=== PATIENT | male | born 1970 | race Caucasian/White ===

== ENCOUNTER → 2019-04-17 17:30 | Outpatient (CLI) | payer OTHER, SELFPAY ==
--- NOTE | 2019-04-17 | DI.MRI.S_ITS ---
PROCEDURE: MR HIP RT WO CON INDICATIONS: Right hip pain TECHNIQUE: Noncontrast coronal T1 spin echo and STIR through the bony pelvis. Coronal and axial T2 fast spin echo with fat saturation, sagittal T1 spin echo, and oblique axial T2 fast spin echo with fat saturation through the hip. COMPARISON: None. FINDINGS: Image quality: Excellent. Bones and joints: No intraosseous lesions or fractures. No avascular necrosis of the femoral heads. Lower lumbar spondylitic changes. Trace right hip joint effusion. Tendons and ligaments: The gluteus medius and minimus tendons appear intact, without associated muscle atrophy. The nearby proximal iliotibial band also appears intact. The iliopsoas tendon appears intact, without adjacent bursal fluid collections or evidence for impingement syndrome. The origin of the hamstring tendon is intact at the ischial tuberosity, as well as the associated sacrotuberous ligament. The straight and reflected heads of the rectus femoris muscle origin appear intact, as well as the conjoint tendon. The ligamentum teres appears intact where visualized. Labrum and cartilage: Anterosuperior labral tear is seen. There is ill-defined multiloculated associated para labral cyst formation, for example image 4-7, with mild circumferential appearance. This measures 6 x 17 mm on oblique axial image 7 series 8 There is adjacent chondral loss, and subchondral sclerosis/spurring. The alpha angle of the femur is within normal limits at less than 55 degrees. Soft tissues: Visualized muscles demonstrate normal bulk and internal signal. Quadratus femoris muscle demonstrates no internal edema to suggest ischiofemoral impingement. The proximal sciatic neurovascular bundle appears normal adjacent to the hamstring tendons. No free pelvic fluid. Bladder wall thickness is normal. Subcentimeter fat signal appearance involving the bladder wall, image 22 series 2, image 22 series 3 of unknown clinical significance or etiology. IMPRESSION: Anterosuperior labral tear, with large circumferential para- labral cyst, and adjacent acetabular degenerative changes/chondral loss. Dictated by: Bruno Frazier M.D. on 04/18/2019 at 9:38 Approved by: Bruno Frazier M.D. on 04/18/2019 at 10:17
== END ==
PROVIDERS: PCP Family Medicine; Visit Provider Orthopaedic Surgery
DX: M25.551 Pain in right hip (principal); S73.191A Other sprain of right hip, initial encounter; M24.851 Other specific joint derangements of right hip, not elsewhere classified
CPT/HCPCS: 73721

== ENCOUNTER → 2022-12-03 16:38 | Outpatient (CLI) | payer OTHER, SELFPAY ==
--- NOTE | 2022-12-03 | DI.MRI.S_ITS ---
PROCEDURE: MR LUMBAR SPINE WO CON INDICATIONS: spondylosis w/o myelopathy or radiculopathy TECHNIQUE: Noncontrast sagittal T1 spin echo and T2 fast echo, sagittal STIR, and T2 fast spin echo through the lumbar spine. In cases with scoliosis, additional coronal T2 fast spin echo may be performed. COMPARISON: [facility] [place], CR, XR LUMBAR SPINE 2 OR 3 VIEWS, 11/25/2022, 13:39. FINDINGS: Image quality: Excellent. Alignment and Curvature: Mild levo curvature, centered L2. Bone Marrow: Marrow is of normal overall signal. No acute vertebral body compression fractures. Spinal Cord: Conus medullaris terminates at the T12/L1 level. Visualized cord demonstrates normal signal and size. Paraspinous Soft Tissues: No paravertebral masses. 8.6 cm inferior right renal cyst. T12-L1: Normal appearance. L1-L2: Normal appearance. L2-L3: Normal appearance. L3-L4: Minimal disc bulge. Mild facet hypertrophy. No canal stenosis or foraminal stenosis. L4-L5: Minimal disc bulge. Facet hypertrophy. No canal stenosis or foraminal stenosis. L5-S1: Facet hypertrophy. No canal stenosis or foraminal stenosis. IMPRESSION: 1. Multilevel lower lumbar facet hypertrophy. 2. No canal stenosis or foraminal stenosis. 3. Incidental note made of 8.6 cm exophytic right renal cyst. Dictated by: Rohit Huerta M.D. on 12/04/2022 at 8:49 Approved by: Rohit Huerta M.D. on 12/04/2022 at 8:52
--- NOTE | 2022-12-03 | DI.MRI.S_ITS ---
PROCEDURE: MR CERVICAL SPINE WO CON INDICATIONS: Spondylosis w/o myelopathy or radiculopathy TECHNIQUE: Noncontrast sagittal T1 spin echo and T2 fast spin echo, sagittal STIR, foraminal oblique sagittal T2 fast spin echo, and axial gradient echo or T2 fast spin echo through the cervical spine. COMPARISON: [facility] [place], CR, XR CERVICAL SPINE 2 OR 3 VIEWS, 11/25/2022, 13:41. FINDINGS: Image quality: Excellent. Alignment and Curvature: There is normal bony alignment. Bone Marrow: Marrow demons chronic anterior vertebral body height loss of C6 vertebral body. rates normal overall signal. Spinal Cord: Visualized spinal cord has normal size and signal. No cerebellar tonsillar herniation. Paraspinous Soft Tissues: No paravertebral masses. Prevertebral soft tissues are normal in thickness. C2-C3: Bilateral facet hypertrophy. No canal stenosis or foraminal stenosis. C3-C4: Diffuse posterior disc post osteophyte. AP diameter of the central canal is 11.3 mm. There are large bilateral uncovertebral joint osteophytes. There is mild bilateral facet hypertrophy. There is right lateral recess stenosis and severe right foraminal narrowing. There is right foraminal L4 nerve root impingement. There is moderate left foraminal narrowing. C4-C5: Disc bulge. AP diameter of the canal is 12 mm. Right uncovertebral joint hypertrophy. Mild bilateral facet hypertrophy. Moderate to severe right foraminal narrowing with a degree of right foraminal C5 nerve root impingement. Mild to moderate left foraminal narrowing. C5-C6: Disc bulge with minimal central posterior disc protrusion. AP diameter of the canal is 12.7 mm. Mild bilateral uncovertebral joint hypertrophy. Mild left foraminal narrowing. C6-C7: Posterior disc bulge. AP diameter of the canal is 12.7 mm. Bilateral uncovertebral joint hypertrophy. Mild bilateral foraminal narrowing. C7-T1: No canal stenosis. Mild bilateral foraminal narrowing. IMPRESSION: 1. Spondylitic change with facet arthropathy and uncovertebral joint hypertrophy. 2. No canal stenosis. 3. Multilevel foraminal narrowing as described above. Findings include severe right foraminal narrowing at C3-C4 and moderate to severe right foraminal narrowing at C4-C5. Dictated by: Rohit Huerta M.D. on 12/04/2022 at 8:52 Approved by: Rohit Huerta M.D. on 12/04/2022 at 8:59
== END ==
PROVIDERS: PCP Family Medicine; Referring Provider Physical Medicine & Rehabilitation; Visit Provider Physical Medicine & Rehabilitation
DX: M47.812 Spondylosis without myelopathy or radiculopathy, cervical region (principal); M48.02 Spinal stenosis, cervical region; M47.816 Spondylosis without myelopathy or radiculopathy, lumbar region; N28.1 Cyst of kidney, acquired
CPT/HCPCS: 72141; 72148

== ENCOUNTER 2025-01-13 17:58 | Emergency (ER) | payer OTHER, SELFPAY ==
[2025-01-13 18:02] VITALS: BP 163/103; PULSE 94; RESP 14; TEMP 36.7; O2SAT 98; BMI 37.5
--- NOTE | 2025-01-13 18:04 | ED_ITS ---
HPI - General Adult General Chief complaint: Extremity Injury, Lower Stated complaint: LEFT KNEE IN PAIN Time Seen by Provider: 01/13/25 18:03 History of Present Illness HPI narrative: 54-year-old male was playing soccer, dropped down to his left knee in order to make a low soccer ball strike with his right leg, felt pain at left knee, some swelling. Does not recall any twisting motion but he was trying to kick the ball with the other leg. No direct kick from another player. No laceration or abrasion to the skin. No pain to left mid upper thigh or hip, nor distal foreleg ankle or foot. Related Data Allergies Allergy/AdvReac Type Severity Reaction Status Date / Time No Known Drug Allergies Allergy Verified 01/13/25 18:06 Patient History Social History Smoking Status: Unknown if ever smoked Exam Narrative Exam Narrative: GENERAL: Well-developed patient, in mild distress. HEAD: Atraumatic. Normocephalic. EYES: Pupils equal round and reactive. Extraocular motions intact. No scleral icterus. No injection or drainage. ENT: Nose without bleeding, purulent drainage. Throat without erythema, tonsillar hypertrophy or exudate. Airway patent. NECK: Trachea midline. Non tender CARDIOVASCULAR: Regular rate and rhythm without murmurs, gallops, or rubs. RESPIRATORY: Clear to auscultation. Breath sounds equal bilaterally. No wheezes, rales, or rhonchi. GASTROINTESTINAL: Abdomen soft, non-tender, nondistended. EXTREMITIES: Tenderness medial and lateral joint line right knee, possible small effusion but not tense, no skin abrasion or wounds obvious, no crepitance over patella, no tenderness along the patellar tendon. No gross medial laxity or lateral laxity on stress testing. Connie's and anterior cruciate pull with good end point, no obvious laxity. Distal lower extremity without obvious trauma or injury or tenderness. No tenderness proximal thigh hip area BACK: Nontender without deformity or crepitance. No flank tenderness. NEURO: AOx3. Motor functions grossly nonfocal SKIN: No rash or erythema of visible areas Initial Vital Signs Initial Vital Signs: Vital Signs Temperature 98.0 F 01/13/25 18:02 Pulse Rate 94 H 01/13/25 18:02 Respiratory Rate 14 01/13/25 18:02 Blood Pressure 163/103 H 01/13/25 18:02 Pulse Oximetry 98 01/13/25 18:02 Oxygen Delivery Method Room Air 01/13/25 18:02 Course Orders Ordered: ED Orders 01/13/25 18:04 XR knee LT 3V Stat Vital Signs Vital signs: Vital Signs - 8 hr 01/13/25 18:02 Temperature 98.0 F Pulse Rate 94 H Respiratory Rate 14 Blood Pressure 163/103 H Pulse Oximetry 98 Oxygen Delivery Method Room Air Medical Decision Making Imaging Data Extremity x-ray #1: Radiologist's Impression: [address] [address] XRay Report Signed Patient: Temo Crawley MR#: [id number] : 1970 Acct:[id number] Age/Sex: 54 / M Date of Service: 01/13/25 Loc: ED Accession Number: [id number] Procedure: XR knee LT 3V Ordering Provider: Rob Aguayo MD PROCEDURE: XR KNEE LT 3V INDICATIONS: struck knee on ground playing soccer TECHNIQUE: 3 views of the knee were acquired. COMPARISON: None. FINDINGS: Bones: No fractures or dislocations. No suspicious bony lesions. Soft tissues: Soft tissue swelling can be seen anterior to the patella There is a small left knee joint effusion. No suspicious soft tissue calcifications. IMPRESSION: There is soft tissue swelling seen anterior to the patella. Small knee joint effusion. No fractures can be seen on this plain film study. If it would be helpful for clinical management decision making, please consider a dedicated, scheduled knee MRI for further evaluation (assuming that there is no contraindication). Dictated by: Pasquale Latif M.D. on 01/13/2025 at 17:51 Approved by: Pasquale Latif M.D. on 01/13/2025 at 17:52 [facility] Narrative Medical decision making narrative: Fall with left knee pain and some effusion on exam, no obvious laxity on varus or valgus stress, good endpoint on Connie's and anterior drawer testing. X-ray without obvious fracture. Consider advanced imaging. No MRI available at this hour and probably not indicated today. CT offered of the knee, declined. Attempted placement of knee immobilizer but he was too large. Tariq wrap applied. Crutches and nonweightbearing, crutches dispensed and fitted for a size with teaching. Advised nonweightbearing until close follow up with his orthopedic surgeon Dr. Morrow who happened also be on-call, can call her office on Wednesday for reassessment once knee effusion hopefully might go down a little bit to see if there is any ligamentous concerns, and need for advanced imaging in follow up. Take [id number] medications as needed for pain control. Discharged home with family. Return precautions discussed. Discharge Plan Departure Patient Disposition: Home Clinical Impression: Strain of left knee Activity Restrictions/Additional Instructions: Knee planting and possible twisting, with left knee pain and some swelling on examination. There some tenderness of the medial joint line and also on the lateral joint line, although there is no gross laxity on stress testing medial or lateral stress testing. Also your Connie's testing and anterior drawer testing seemed really quite good, very solid end point, hopefully there is no significant anterior cruciate ligament injury. X-rays without obvious bony injuries. However this is not show your soft tissue structures, including ligaments, which can be strained or even torn. Possible ligamentous injury. We attempted to place a knee immobilizer but it did not fit, you were 2 large, Tariq wrap applied. Advised use of crutches and nonweightbearing for now, dispensed and fitted in ED. Recheck with Orthopedic surgery Dr. Morrow on Wednesday for re- examination. Take [id number] ibuprofen as needed. Ice and elevation as much as you can tolerate. Return to this/nearest emergency department for any change worsening symptoms or any concerns prior. No obvious fracture on radiology reading of your knee, some small effusion was noted, as was clinically suspected. Also there is a small amount of edema before the kneecap, sometimes that bursa can also be traumatically irritated in cause traumatic bursitis of the patellar bursa. If your symptoms persist you could consider advanced imaging MRI, to look for ligamentous structures, and also it can look for bony injuries not found on plain films. Referrals: Adonay Villanueva MD [Primary Care Provider] - Jacqueline Morrow MD [Physician] - Stand Alone Forms: Patient Portal/API/Survey
== END 2025-01-13 19:05 | disposition home or self-care (01) ==
PROVIDERS: Emergency Provider Emergency Medicine; PCP Family Medicine; Referring Provider Emergency Medicine
DX: S86.912A Strain of unspecified muscle(s) and tendon(s) at lower leg level, left leg, initial encounter (principal); X58.XXXA Exposure to other specified factors, initial encounter; Y93.66 Activity, soccer
CPT/HCPCS: 73562; 99282; 99283

== ENCOUNTER → 2025-01-24 19:04 | Outpatient (CLI) | payer OTHER, SELFPAY ==
--- NOTE | 2025-01-24 | DI.MRI.S_ITS ---
PROCEDURE: MR KNEE LT WO CON INDICATIONS: rupture - left TECHNIQUE: Noncontrast sagittal PD fast spin echo and T2 fast spin echo with fat saturation, sagittal 3-D FLASH with fat saturation; coronal T1 spin echo and PD fast spin echo with fat saturation, and axial PD fast spin echo with fat saturation through the knee. COMPARISON: None. FINDINGS: Image quality: Excellent. Menisci: Signal abnormality involving posterior horn of medial meniscus extending to inferior articulating surface is seen suggestive of an oblique tear in this area. Subtle signal abnormality involving anterior horn of lateral meniscus is also seen extending to inferior articulating surface. Cruciate ligaments: Moderate grade intrasubstance partial-thickness tear involving ACL near its mid to distal portion. No definite full-thickness ACL rupture. The PCL is intact. Medial structures: The medial collateral ligament appears thickened with intrasubstance T2 hyperintense signal and surrounding edema particularly near its femoral insertion. Visualized portions of the pes anserinus tendons appear normal. No abnormal bursal fluid. Lateral structures: The lateral collateral ligament, long and short heads of the biceps femoris tendon appear thickened. The popliteus tendon appears thickened with intrasubstance T2 hyperintense signal extending to musculotendinous junction. Iliotibial band appears normal. Anterior structures: There is small lobulated fluid collection along anterior aspect of patella and proximal patellar tendon concerning for fluid within prepatellar bursa. Diffuse subcutaneous soft tissue edema and swelling around left knee is seen particularly over anterior aspect of left knee. Distal quadriceps tendon and patellar tendon are intact. Patellar alignment is normal. Bones and cartilage: No bone marrow contusions or fractures. Mild tricompartmental osteoarthritis and low-grade chondromalacia is seen. Joint space: There is small knee joint fluid. No Roger's cyst. Normal appearing synovial plicae are incidentally noted. IMPRESSION: 1. Moderate grade partial-thickness tear involving mid to distal portion of ACL. No full-thickness ACL rupture. No abnormal anterior tibial translation. The PCL is intact. 2. Suggestion of subtle oblique tear involving posterior horn of medial meniscus extending to inferior articulating surface. There is also likely subtle oblique tear involving anterior horn of lateral meniscus extending to inferior articulating surface. 3. Moderate to high-grade partial-thickness tear involving medial collateral ligament near its femoral insertion. Low-grade lateral collateral ligament sprain. Distal biceps femorals tendinosis. Low-grade intrasubstance partial-thickness tear involving popliteus tendon extending to musculotendinous junction. 4. Small amount of fluid along anterior aspect of patella and proximal patellar tendon which may indicate prepatellar bursal fluid and bursitis. Soft tissue swelling and edema along anterior, medial and lateral aspect of left knee. 5. Mild tricompartmental osteoarthritis and low-grade chondromalacia. No fracture or dislocation. Small joint effusion, no loose bodies. Dictated by: Minh Murphy M.D. on 01/26/2025 at 9:03 Approved by: Minh Murphy M.D. on 01/26/2025 at 9:24
== END ==
PROVIDERS: PCP Family Medicine; Referring Provider Internal Medicine; Visit Provider Physician Assistant
DX: M25.562 Pain in left knee (principal); S83.512A Sprain of anterior cruciate ligament of left knee, initial encounter; S83.412A Sprain of medial collateral ligament of left knee, initial encounter; S83.422A Sprain of lateral collateral ligament of left knee, initial encounter; S86.812A Strain of other muscle(s) and tendon(s) at lower leg level, left leg, initial encounter; M25.462 Effusion, left knee; M17.12 Unilateral primary osteoarthritis, left knee; M94.262 Chondromalacia, left knee
CPT/HCPCS: 73721

== ENCOUNTER → 2025-03-01 13:42 | Outpatient (CLI) | payer OTHER, SELFPAY ==
--- NOTE | 2025-03-01 13:43 | DI.US.S_ITS ---
PROCEDURE: US PERIPH VENOUS LOW EXTREM LT INDICATIONS: SPRAIN OF MEDIAL COLLATERAL LIG R/O DVT TECHNIQUE: Real-time imaging, as well as color and pulse Doppler interrogation, were performed of the lower extremity deep veins from the inguinal ligament to the popliteal fossa, with documentation of the visualized calf veins. COMPARISON: None. FINDINGS: The common femoral, femoral, popliteal, and the visualized calf veins are normally compressible, and free of intraluminal thrombus. Color and pulse Doppler demonstrate normal phasic intraluminal flow. There is normal augmentation response to distal compression maneuver. IMPRESSION: No findings of lower extremity deep venous thrombosis. Dictated by: Pepe Alvarado M.D. on 03/01/2025 at 15:14 Approved by: Pepe Alvarado M.D. on 03/01/2025 at 15:14
== END ==
PROVIDERS: PCP Internal Medicine; Referring Provider Orthopaedic Surgery; Visit Provider Orthopaedic Surgery
DX: S83.412A Sprain of medial collateral ligament of left knee, initial encounter (principal); X58.XXXA Exposure to other specified factors, initial encounter
CPT/HCPCS: 93971

== ENCOUNTER 2025-07-03 08:41 | Outpatient (CLI) | payer OTHER, SELFPAY ==
[2025-07-03] VITALS (8 sets, daily range): BP systolic 116–139; BP diastolic 77–87; PULSE 57–62; RESP 14–20; TEMP 36.4; O2SAT 96–100
[2025-07-03] MEDS: MIDAZOLAM 2 MG/2 ML VIAL IV (10:13)
--- NOTE | 2025-07-03 10:27 | P.PCN_ITS ---
Date/Time/Diagnoses Date of procedure: 07/03/25 Time of procedure: 10:27 Pre-procedure diagnosis: 1. CERVICAL STENOSIS, 2. CERVICAL HNP WITH UPPER EXTREMITY RADICULAR FEATURES Post-procedure diagnosis: same Procedure Notes Procedure: 1. FLUORSCOPICALLY GUIDED CONTRAST CONTROLLED INTERLAMINAR EPIDURAL STEROID INJECTION - C6/7 TL TERESSA Indications: Temo is referred by Dr. Sanders for treatment of Cervical HNP with Upper Extremity Paresthesias. Physician: Michael Malagon Total Fluoroscopy time (seconds): 23 Total sedation minutes: 10 Complications: none Procedure in detail & Post-procedure care: FINDINGS Cervical Stenosis due to disc deterioration and nerve root irritation and nerve root irritation DESCRIPTION OF PROCEDURE Fluoroscopically guided, contrast-controlled C6/7 translaminar epidural steroid injection with conscious sedation. Following review of allergy and review of potential side effects and complications, including, but not necessarily limited to, infection, allergic reaction, local tissue breakdown, temporary as well as permanent nerve injury, stroke, paralysis, and possible , the patient indicated that patient understood and agreed to proceed. An informed consent document was signed by the patient, witnessed by a nurse, and placed in the patient's chart. Additionally, other treatment options including modalities, medications, and physical therapy were reviewed with the patient. After review of previous anaesthesic history and IV conscious sedation the patient was deemed safe to proceed with today?s procedure with IV conscious sedation as ASA class II designation. Safety time-out was performed to confirm patient ID, procedure to be performed and site of procedure. IV sedation was accomplished with a combination of 2mg of Versed administered by the RN after DO order, titrated to patient comfort during the course of the procedure while the patient remained responsive to all verbal commands. In the prone position, following sterile prep and drape of the cervical region, the C6/7 translaminar space was identified fluoroscopically. The skin was anesthetized via a 25-gauge 1.5-inch needle with 1% lidocaine solution. At this point, a 25-gauge, 2.5-inch short bevel spinal needle was atraumatically introduced and advanced under fluoroscopic guidance into epidural space at the C6/7 translaminar space. Depth was confirmed on lateral view. Radiological data, including multiple fluoroscopic views of the cervical spine, reveal a spinal needle at the C6/7 translaminar space. Lateral views then show placement of the needle in the epidural space. Subsequent views show contrast material flowing superiorly and inferiorly in the epidural space. DSA fluoroscopy with live contrast injection, once again, confirmed no vascular or intrathecal uptake. At this point, using loss of resistance technique with saline and air, the epidural space was entered. Following negative aspiration, injection of approximately 1.5 cc of Isovue-200 with live fluoroscopy in the AP view confirmed epidural flow in the epidural space without vascular or intrathecal uptake observed. Subsequently, a test dose of 1 cc of 1% lidocaine solution was injected and patient was observed for two minutes without signs or symptoms of complications, including abdominal pain, shortness of breath, bilateral upper or lower extremity weakness, nausea and vomiting, prior to steroid injection. At this point, 3cc or 30mg of dexamethasone was then injected without incident. The patient tolerated the procedure well without signs or symptoms of complic ations prior to being transferred to the recovery area for further monitoring, The patient was then transferred to the recovery area where they were observed for an appropriate period of time after the injection. The patient reported a VAS score of 6 prior to the procedure and a post-procedure VAS of 0. POST OP INSTRUCTIONS The patient was provided a Pain Log to continue to record their response to the target-specific procedure prior to follow-up visit with the referring provider. Additionally, specific post-injection care instructions and a contact number to our office were provided if concerns arise regarding possible complications associated with the procedure are suspected.
== END 2025-07-03 10:51 | disposition home or self-care (01) ==
LOC: RAD 08:41
PROVIDERS: PCP Internal Medicine; Referring Provider Physical Medicine & Rehabilitation; Visit Provider Physical Medicine & Rehabilitation
DX: M48.02 Spinal stenosis, cervical region (principal); M50.123 Cervical disc disorder at C6-C7 level with radiculopathy
CPT/HCPCS: 62321; 99152; J1100; J2250

== ENCOUNTER 2025-08-26 10:39 | Emergency (ER) | payer OTHER, SELFPAY ==
[2025-08-26] VITALS (65 sets, daily range): BP systolic 94–130; BP diastolic 65–97; PULSE 72–158; RESP 14–33; TEMP 36.3; O2SAT 93–98; BMI 37.5
--- NOTE | 2025-08-26 10:45 | EKG_ITS ---
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
--- NOTE | 2025-08-26 10:57 | ED.CHESTPAIN ---
HPI - Chest Pain General Chief Complaint: Arrhythmia/Palpitations Stated Complaint: WIC: high heart rate; Hx AVIB Time Seen by Provider: 08/26/25 10:46 History of Present Illness HPI narrative: 55-year-old gentleman atrial fibrillation status post ablation, dyslipidemia, history of DVT and PE on Xarelto presents with tachycardia that he noticed on his apple watch which he takes metoprolol 50 mg once daily and has been taking 25 mg extra each day for the last few days. Patient reports being currently treated for strep with Augmentin when these symptoms all started. Patient denies any active chest pain, shortness breath, dyspnea on exertion, leg pain, leg swelling, back pain, abdominal pain, nausea, vomiting, diaphoresis, diarrhea, cough. Other than what is stated 14 point review of system is negative. Related Data Home Medications ?Medication ?Instructions ?Recorded ?Confirmed amlodipine 5 mg tablet 5 mg PO BID 05/16/25 08/26/25 atorvastatin 20 mg tablet 20 mg PO DAILY 05/16/25 08/26/25 losartan 100 mg tablet 100 mg PO DAILY 05/16/25 08/26/25 metformin 500 mg tablet 500 mg PO DAILY 05/16/25 08/26/25 metoprolol succinate 50 mg 50 mg PO DAILY 05/16/25 08/26/25 tablet,extended release 24 hr metronidazole 0.75 % topical cream 1 applic topical BID 05/16/25 08/26/25 mupirocin 2 % topical ointment 1 applic topical 05/16/25 08/26/25 rivaroxaban 20 mg tablet (Xarelto) 20 mg PO DAILY 05/16/25 08/26/25 tadalafil 5 mg tablet 5 mg PO DAILY 05/16/25 08/26/25 Previous Rx's ?Medication ?Instructions ?Recorded amoxicillin 875 mg-potassium 1 tab PO BID Strep pharyngitis 10 08/23/25 clavulanate 125 mg tablet days #20 tabs Allergies Allergy/AdvReac Type Severity Reaction Status Date / Time No Known Drug Allergies Allergy Verified 08/26/25 10:41 Review of Systems Review of Systems ROS Unobtainable: All systems reviewed & are unremarkable except as noted in HPI and below Patient History Medical History History of DVT (deep vein thrombosis) Chronic anticoagulation Atrial fibrillation Cervical stenosis of spinal canal Cervical radicular pain Cervical spondylosis with radiculopathy Facet arthropathy, lumbar Social History Smoking Status: Never smoker Exam Narrative Exam Narrative: GENERAL: [55] year old patient appears stated age. Well-developed patient, in mild distress. HEAD: Atraumatic. Normocephalic. EYES: Pupils equal round and reactive. Extraocular motions intact. No scleral icterus. No injection or drainage. ENT: Nose without bleeding, purulent drainage. Throat without erythema, tonsillar hypertrophy or exudate. Airway patent. NECK: Trachea midline. Non tender CARDIOVASCULAR: Irregularly irregular and tachycardic Regular rate and rhythm without murmurs, gallops, or rubs. RESPIRATORY: Clear to auscultation. Breath sounds equal bilaterally. No wheezes, rales, or rhonchi. GASTROINTESTINAL: Abdomen soft, non-tender, nondistended. EXTREMITIES: No edema or joint tenderness. BACK: Nontender without deformity or crepitance. No flank tenderness. NEURO: AOx3. SKIN: No rash or erythema of visible areas Initial Vital Signs Initial Vital Signs: Vital Signs Temperature 97.4 F L 08/26/25 10:48 Pulse Rate 148 H 08/26/25 10:48 Respiratory Rate 16 08/26/25 10:48 Blood Pressure 130/97 H 08/26/25 10:48 Pulse Oximetry 98 08/26/25 10:48 Oxygen Delivery Method Room Air 08/26/25 10:48 Course Orders Ordered: ED Orders 08/26/25 10:45 EKG-12 Lead Stat 08/26/25 11:01 XR chest 1V Stat 08/26/25 11:35 Complete Blood Count AUTO DIFF Stat Comprehensive Metabolic Panel Stat Lipase Stat Magnesium Stat NT-proBNP (BNP-Adult 18+) Stat Troponin I Stat 08/26/25 12:00 EKG-12 Lead Stat Discontinued Medications Diltiazem HCl (Diltiazem 25 Mg/5 Ml Sdv) 25 mg IV NOW ONE Stop: 08/26/25 11:02 Last Admin: 08/26/25 11:34 Dose: 25 mg Documented By: [facility] Vital Signs Vital signs: Vital Signs - 8 hr 08/26/25 10:48 08/26/25 11:06 08/26/25 11:07 Temperature 97.4 F L Pulse Rate 148 H 143 H Respiratory Rate 16 23 Blood Pressure 130/97 H 114/76 Pulse Oximetry 98 96 Oxygen Delivery Method Room Air 08/26/25 11:30 08/26/25 11:30 08/26/25 11:34 Temperature Pulse Rate 145 H 144 H Respiratory Rate 18 Blood Pressure 109/77 109/77 Pulse Oximetry 97 Oxygen Delivery Method 08/26/25 11:35 08/26/25 11:35 08/26/25 11:40 Temperature Pulse Rate 145 H 72 Respiratory Rate 16 21 Blood Pressure 105/76 Pulse Oximetry 97 97 Oxygen Delivery Method 08/26/25 11:40 08/26/25 11:45 08/26/25 11:45 Temperature Pulse Rate 72 Respiratory Rate 18 Blood Pressure 94/65 96/67 Pulse Oximetry 94 Oxygen Delivery Method 08/26/25 11:50 08/26/25 11:50 08/26/25 11:55 Temperature Pulse Rate 73 Respiratory Rate 23 Blood Pressure 95/67 102/69 Pulse Oximetry 94 Oxygen Delivery Method 08/26/25 11:55 08/26/25 12:00 08/26/25 12:00 Temperature Pulse Rate 73 74 Respiratory Rate 23 22 Blood Pressure 99/71 Pulse Oximetry 94 94 Oxygen Delivery Method MDM - Chest Pain Lab Data 08/26/25 11:35 08/26/25 11:35 Labs: Lab Results 08/26/25 Range/Units 11:35 WBC 5.3 (4.5-11.0) X10^3/uL RBC 4.75 (4.5-5.9) X10^6/uL Hgb 12.5 L (13.5-17.5) g/dL Hct 39.1 L (41-53) % MCV 82.3 (80-100) fL MCH 26.4 (26-34) PG MCHC 32.1 (30-36) % RDW 18.2 H (11.6-14.8) % Plt Count 328 (150-400) X10^3/uL Neut % (Auto) 57.4 (50-75) % Lymph % (Auto) 30.6 (25-40) % [place] % (Auto) 10.2 (3-14) % Eos % (Auto) 0.7 L (2-4) % Baso % (Auto) 1.1 (0-2) % Neut # (Auto) 3100 (6703-1040) /uL Lymph # (Auto) 1600 (8695-9096) /uL [place] # (Auto) 500 (0-900) /uL Eos # (Auto) 0 (0-450) /uL Baso # (Auto) 100 (0-100) /uL Sodium 140 (137-145) mmol/L Potassium 4.2 (3.4-5.1) mmol/L Chloride 110 H (98-107) mmol/L Carbon Dioxide 23 (22-32) mmol/L BUN 20 (9-20) mg/dL Creatinine 1.22 (0.66-1.25) mg/dL Estimated GFR > 60 (>60) mL/min BUN/Creatinine Ratio 16.4 (6-22) Glucose 107 H (70-99) mg/dL Calcium 9.1 (8.4-10.2) mg/dL Magnesium 1.8 (1.6-2.3) mg/dL Total Bilirubin 0.5 (0.2-1.3) mg/dL AST 24 (17-59) IU/L ALT 22 (<50) IU/L Alkaline Phosphatase 67 (38-126) U/L Troponin I < 0.012 (0.01-0.034) ng/mL NT-Pro-B Natriuret Pep 1810 H (<125) pg/mL Total Protein 7.0 (6.3-8.2) g/dL Albumin 3.9 (3.5-5.0) g/dL Globulin 3.1 (1.7-4.1) g/dL Albumin/Globulin Ratio 1.3 (1.0-2.8) Lipase 54 (23-300) U/L Imaging Data Chest x-ray: Radiologist's Impression: [address] [address] XRay Report Signed Patient: Temo Crawley MR#: [id number] : 1970 Acct:[id number] Age/Sex: 55 / M Date of Service: 08/26/25 Loc: ED Accession Number: [id number] Procedure: XR chest 1V Ordering Provider: Temo Subramanian D.O. PROCEDURE: XR CHEST 1V INDICATIONS: sob TECHNIQUE: One view of the chest was acquired. COMPARISON: None. FINDINGS: Surgical changes and devices: None. Lungs and pleura: Lungs are clear. No pleural effusions or pneumothorax. Mediastinum: Mediastinal contours appear normal. Heart size is normal. Bones and chest wall: No suspicious bony lesions. Overlying soft tissues appear unremarkable. IMPRESSION: No acute cardiopulmonary abnormality is seen. Dictated by: Stefan Zuniga M.D. on 08/26/2025 at 11:47 Approved by: Stefan Zuniga M.D. on 08/26/2025 at 11:48 ECG Data Interpretation: Atrial Flutter HR 148 [place] undetermined QRS [address]-t wave change No previous EKG to compare against MDM Narrative Medical decision making narrative: All lab work, vital signs, nurse triage note, medication list, previous ER visits, and all imaging studies reviewed. Patient given 25 mg diltiazem IV x 1. rate controlled but then went back up to the 130s. Pt now cardioverted 100j synchronized with repeat EKG NSR. Airway assessed prior to start of procedure? [Y/N] Procedural Sedation Time of Procedure: [1436] Consent Signed: [Y] ASA Class: [II] Mallampati Airway Classification: [II] Time Out Performed: [Y] Indication: [Afib/flutter] Preparation: [Telemetry, RT, RN, IV] Bedside and IV Secured: [Y/N] Fentanyl Dose (mcg): [] IV Propofol Dose (mg): [100] ED Sedation Level: [moderate] Patient Tolerated Procedure: [well] Complications: [no complication] Discharge Plan Departure Patient Disposition: Home Clinical Impression: Atrial fibrillation, rapid Instructions: DI for Atrial Fibrillation Activity Restrictions/Additional Instructions: Return with new or worsening symptoms. Follow up with PCP this week for recheck. Prescriptions: No Action amoxicillin-pot clavulanate 875-125 mg tablet 1 tab PO BID 10 Days Qty: 20 0RF metformin 500 mg tablet 500 mg PO DAILY atorvastatin 20 mg tablet 20 mg PO DAILY metoprolol succinate 50 mg tablet extended release 24 hr 50 mg PO DAILY amlodipine 5 mg tablet 5 mg PO BID metronidazole 0.75 % cream 1 applic topical BID mupirocin 2 % ointment 1 applic topical losartan 100 mg tablet 100 mg PO DAILY tadalafil 5 mg tablet 5 mg PO DAILY Xarelto 20 mg tablet 20 mg PO DAILY Referrals: Patrick Sanders MD [Primary Care Provider, Internal Medicine] Stand Alone Forms: Patient Portal/API
--- NOTE | 2025-08-26 11:01 | DI.RAD.S_ITS ---
PROCEDURE: XR CHEST 1V INDICATIONS: sob TECHNIQUE: One view of the chest was acquired. COMPARISON: None. FINDINGS: Surgical changes and devices: None. Lungs and pleura: Lungs are clear. No pleural effusions or pneumothorax. Mediastinum: Mediastinal contours appear normal. Heart size is normal. Bones and chest wall: No suspicious bony lesions. Overlying soft tissues appear unremarkable. IMPRESSION: No acute cardiopulmonary abnormality is seen. Dictated by: Stefan Zuniga M.D. on 08/26/2025 at 11:47 Approved by: Stefan Zuniga M.D. on 08/26/2025 at 11:48
[2025-08-26 11:52] LABS: Add Manual Diff / Slide Review NO; Hematocrit 39.1 % (41-53); Hemoglobin 12.5 g/dL (13.5-17.5); Lymphocytes Absolute Auto 1600 /uL (1100-4500); Mean Corpuscular HGB Conc 32.1 % (30-36); Mean Corpuscular Hemoglobin 26.4 PG (26-34); Mean Corpuscular Volume 82.3 fL (80-100); Platelet Count 328 X10^3/uL (150-400)
[2025-08-26 12:04] LABS: Alanine Aminotransferase 22 IU/L (<50); Albumin 3.9 g/dL (3.5-5.0); Albumin Globulin Ratio 1.3 (1.0-2.8); Alkaline Phosphatase 67 U/L (38-126); Blood Urea Nitrogen 20 mg/dL (9-20); Calcium 9.1 mg/dL (8.4-10.2); Carbon Dioxide 23 mmol/L (22-32); Chloride 110 mmol/L (98-107); Estimated Glomerular Filt Rate > 60 mL/min (>60); Globulin 3.1 g/dL (1.7-4.1); Glucose 107 mg/dL (70-99); HEMOLYSIS < 15 (0-50); Lipase 54 U/L (23-300); Magnesium 1.8 mg/dL (1.6-2.3); Potassium 4.2 mmol/L (3.4-5.1); Sodium 140 mmol/L (137-145); Total Protein 7.0 g/dL (6.3-8.2)
--- NOTE | 2025-08-26 12:10 | EKG_ITS ---
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
[2025-08-26 12:16] LABS: NT-proBNP (BNP-Adult 18+) 1810 pg/mL (<125); Troponin I < 0.012 ng/mL (0.01-0.034)
[2025-08-26 13:52] LABS: Troponin I < 0.012 ng/mL (0.01-0.034)
--- NOTE | 2025-08-26 15:24 | EKG_ITS ---
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
== END 2025-08-26 16:11 | disposition home or self-care (01) ==
PROVIDERS: Emergency Provider Family Medicine; PCP Internal Medicine
DX: I48.20 Chronic atrial fibrillation, unspecified (principal)
CPT/HCPCS: 36415; 71045; 80053; 81003; 83690; 83735; 83880; 84484; 85025; 92960; 93005; 96374; 96376; 99285; J7050